=== PATIENT | male | born 1960 | race Caucasian/White ===

== ENCOUNTER 2019-01-24 10:22 | Emergency (ER) | payer SELFPAY ==
[~2019-01-24] VITALS: Ht 172.7 cm; Wt 100.0 kg
[2019-01-24 12:28] LABS: BASOPHILS % (AUTO) 0.4 % (0.0-2.0); EOSINOPHILS % (AUTO) 0.5 % (1.0-6.0); HEMATOCRIT 47.1 % (41-53); HEMOGLOBIN 16.1 g/dL (13.5-17.5); LYMPHOCYTES # (AUTO) 1.1 K/uL (1.0-4.8); LYMPHOCYTES % (AUTO) 9.5 % (22.0-44.0); MEAN CORPUSCULAR HEMOGLOBIN 31.2 pg (26.0-34.0); MEAN CORPUSCULAR HGB CONC 34.1 G/dL (31.0-37.0); MEAN CORPUSCULAR VOLUME 91 fL (80-100); MONOCYTES # (AUTO) 0.6 K/uL (0.1-1.0); MONOCYTES % (AUTO) 4.7 % (2.0-9.0); NEUTROPHILS # (AUTO) 10.1 K/uL (1.8-7.7); NEUTROPHILS % (AUTO) 84.9 % (40.0-70.0); PLATELET COUNT (AUTO) 235 K/uL (150-450); RED BLOOD CELL COUNT(AUTO) 5.16 MIL/uL (4.50-5.90); RED CELL DISTRIBUTION WIDTH 13.3 % (11.5-14.5)
[2019-01-24 12:37] VITALS: BP 119/75
[2019-01-24 12:43] LABS: ANION GAP 8 mmol/L (8-16); CARBON DIOXIDE 25 mmol/L (22-29); CHLORIDE 104 mmol/L (98-107); CREATININE 1.11 mg/dL (0.60-1.30); GLOMERULAR FILTR. RATE CALC > 60 mL/min (>60); GLUCOSE,RANDOM 113 mg/dL (70-110); POTASSIUM 4.6 mmol/L (3.5-5.1); SODIUM SERUM 137 mmol/L (136-145); UREA NITROGEN, BLOOD 15 mg/dL (7-18)
[2019-01-24 12:49] LABS: APPEARANCE,URINE CLEAR (CLEAR); BILIRUBIN,URINE NEGATIVE (NEGATIVE); GLUCOSE, URINE (UA) NEGATIVE (NEGATIVE); KETONES,URINE NEGATIVE (NEGATIVE); LEUKOCYTE ESTERASE ,URINE NEGATIVE (NEGATIVE); NITRATE,URINE NEGATIVE (NEGATIVE); OCCULT BLOOD,URINE SMALL (NEGATIVE); PROTEIN,URINE NEGATIVE (NEGATIVE); UROBILINOGEN,URINE 0.2 mg/dL (<=1.0)
[2019-01-24 12:50] LABS: ALANINE AMINOTRANSFERASE 30 U/L (12-78); ALBUMIN 3.6 g/dL (3.4-5.0); ALKALINE PHOSPHATASE 69 U/L (46-116); ASPARTATE AMINOTRANSFERASE 26 U/L (15-37); BILIRUBIN,TOTAL 0.2 mg/dL (0.1-1.0); TOTAL PROTEIN, SERUM 7.5 g/dL (6.4-8.2)
[2019-01-24 12:54] LABS: BACTERIA,URINE None Seen /HPF (None Seen); WBC,URINE None Seen /HPF (0-5)
== END 2019-01-24 14:11 | disposition home or self-care (01) ==
LOC: EMS 10:24
DX: N32.0 Bladder-neck obstruction (principal); R33.9 Retention of urine, unspecified
CPT/HCPCS: 51702

== ENCOUNTER 2019-03-12 13:05 | Emergency (ER) | payer MEDICAID ==
[~2019-03-12] VITALS: Ht 172.7 cm; Wt 109.1 kg
[2019-03-12 17:19] VITALS: BP 141/78
== END 2019-03-12 17:29 | disposition home or self-care (01) ==
LOC: EMS 13:06
DX: T83.098A Other mechanical complication of other urinary catheter, initial encounter (principal); R33.9 Retention of urine, unspecified; Y84.1 Kidney dialysis as the cause of abnormal reaction of the patient, or of later complication, without mention of misadventure at the time of the procedure
CPT/HCPCS: 51705

== ENCOUNTER 2019-03-13 20:34 | Emergency (ER) | payer MEDICAID ==
[~2019-03-13] VITALS: Ht 172.7 cm; Wt 104.5 kg
[2019-03-14 01:57] VITALS: BP 126/75
== END 2019-03-14 02:00 | disposition home or self-care (01) ==
LOC: EMS 20:34
DX: F10.129 Alcohol abuse with intoxication, unspecified (principal); R03.0 Elevated blood-pressure reading, without diagnosis of hypertension; N48.89 Other specified disorders of penis

== ENCOUNTER 2019-03-15 16:17 | Emergency (ER) | payer MEDICAID ==
[~2019-03-15] VITALS: Ht 172.7 cm; Wt 100.0 kg
[2019-03-15 20:08] LABS: APPEARANCE,URINE TURBID (CLEAR); BILIRUBIN,URINE NEGATIVE (NEGATIVE); GLUCOSE, URINE (UA) NEGATIVE (NEGATIVE); KETONES,URINE NEGATIVE (NEGATIVE); LEUKOCYTE ESTERASE ,URINE LARGE (NEGATIVE); NITRATE,URINE NEGATIVE (NEGATIVE); OCCULT BLOOD,URINE LARGE (NEGATIVE); PROTEIN,URINE SEE CONFIRM (NEGATIVE)
[2019-03-15 20:26] LABS: SULFOSALICYLIC ACID,URINE 4+ (Negative)
[2019-03-15 20:27] LABS: BACTERIA,URINE Many /HPF (None Seen); WBC,URINE Full Field /HPF (0-5)
[2019-03-15 20:31] LABS: SQUAMOUS EPITHELIAL CELL,UR None Seen /LPF (None Seen)
[2019-03-15 20:32] LABS: RBC,URINE 51-100 /HPF (0-2)
[2019-03-15] MEDS ORDERED: LIDOCAINE/PF 1% 2 ML VIAL IM ONE (20:45)
[2019-03-15] MEDS ORDERED: CefTRIAXone SODIUM 1 GM/VIAL IM ONE (20:45)
[2019-03-15] MEDS ORDERED: CIPROFLOXACIN HCL 250 MG TABLET PO ONE (20:45)
[2019-03-15 21:49] VITALS: BP 143/87
[2019-03-15] MEDS ORDERED: ACETAMINOPHEN 325 MG TABLET PO ONE (22:00)
== END 2019-03-15 22:24 | disposition home or self-care (01) ==
LOC: EMS 16:19
DX: N39.0 Urinary tract infection, site not specified (principal)
CPT/HCPCS: 81001; 87077; 87086; 87186; 96372; 99283; J0696; J3490

== ENCOUNTER 2024-02-03 09:12 | Emergency (ER) | payer MEDICAID, OTHER ==
[~2024-02-03] VITALS: Ht 172.7 cm; Wt 115.9 kg
[2024-02-03 09:21] VITALS: TEMP 98.3
[2024-02-03 09:32] LABS: COVID AG,FIA SOURCE NASAL SWAB
[2024-02-03 09:52] LABS: SARS-COV2 (COVID) ANTIGEN,FIA Negative (Negative)
[2024-02-03 09:53] LABS: INFLUENZA TYPE A NEGATIVE FOR TYPE A (NEGATIVE); INFLUENZA TYPE B NEGATIVE FOR TYPE B (NEGATIVE)
[2024-02-03 10:13] LABS: BASOPHILS % (AUTO) 0.6 % (0.0-2.0); EOSINOPHILS % (AUTO) 2.1 % (1.0-6.0); HEMATOCRIT 46.8 % (41-53); HEMOGLOBIN 15.9 g/dL (13.5-17.5); LYMPHOCYTES # (AUTO) 1.2 K/uL (1.0-4.8); MEAN CORPUSCULAR HEMOGLOBIN 30.4 pg (26.0-34.0); MEAN CORPUSCULAR VOLUME 90 fL (80-100); MONOCYTES # (AUTO) 0.7 K/uL (0.1-1.0); MONOCYTES % (AUTO) 12.9 % (2.0-9.0); NEUTROPHILS # (AUTO) 3.1 K/uL (1.8-7.7); NEUTROPHILS % (AUTO) 60.4 % (40.0-70.0); PLATELET COUNT (AUTO) 163 K/uL (150-450); RED BLOOD CELL COUNT(AUTO) 5.23 MIL/uL (4.50-5.90); RED CELL DISTRIBUTION WIDTH 13.8 % (11.5-14.5); WHITE BLOOD COUNT (AUTO) 5.2 K/uL (4.5-11.0)
[2024-02-03 10:21] LABS: ANION GAP 5 mmol/L (8-16); CALCIUM, TOTAL 8.7 mg/dL (8.8-10.5); CARBON DIOXIDE 28 mmol/L (22-29); CHLORIDE 100 mmol/L (98-107); CREATININE 0.97 mg/dL (0.60-1.30); GLOMERULAR FILTR. RATE CALC > 60 mL/min (>60); GLUCOSE,RANDOM 107 mg/dL (70-110); POTASSIUM 3.9 mmol/L (3.5-5.1); SODIUM SERUM 133 mmol/L (136-145); UREA NITROGEN, BLOOD 13 mg/dL (7-18)
[2024-02-03 10:30] LABS: TROPONIN I-HIGH SENSITIVITY 6 ng/L (<76)
[2024-02-03 10:32] LABS: B-TYPE NATRIURETIC PEPTIDE < 5 pg/mL (0-100)
[2024-02-03] MEDS: ALBUTEROL SULFATE 2.5 MG/0.5 ML NEB SOLUTION NEB ONE (10:36)
[2024-02-03] MEDS: IPRATROPIUM BROMIDE 0.5 MG/2.5 ML NEB SOLUTION NEB ONE (10:36)
[2024-02-03 10:37] VITALS: PULSE 86; RESP 18; O2SAT 98
[2024-02-03 10:38] VITALS: PULSE 86; RESP 18; O2SAT 98
[2024-02-03] MEDS: PredniSONE 20 MG TABLET PO ONE (11:02)
[2024-02-03] MEDS: ALBUTEROL SULFATE HFA 90 MCG/PUFF 8 GM INHALER IH ONE (11:29)
[2024-02-03] MEDS ORDERED: AZIT250T9 PO (11:56)
[2024-02-03] MEDS ORDERED: PRED-554 PO (11:57)
[2024-02-03 12:00] VITALS: BP 136/81; PULSE 87; RESP 20; O2SAT 95
== END 2024-02-03 12:55 | disposition home or self-care (01) ==
LOC: EMS 09:31
DX: J98.01 Acute bronchospasm (principal); J98.4 Other disorders of lung; R06.02 Shortness of breath; R05.9 Cough, unspecified; Z20.822 Contact with and (suspected) exposure to COVID-19
CPT/HCPCS: 99285; 71045; 87426; 80048; 83880; 84484; 85025; 87804; 36415; 94640; 93005; J7512; J3535; J7613

== ENCOUNTER 2024-11-19 23:40 | Emergency (ER) | payer OTHER ==
[~2024-11-19] VITALS: Ht 172.7 cm; Wt 118.2 kg
[~2024-11-19 23:40] MED LIST: SULF-261 PO; TAMS0.4C94 PO
[2024-11-19 23:47] VITALS: BP 140/52; PULSE 80; RESP 16; TEMP 98.7; O2SAT 100
[2024-11-20 02:01] LABS: PLATELET COUNT (AUTO) 205 K/uL (150-450); RED BLOOD CELL COUNT(AUTO) 5.12 MIL/uL (4.50-5.90); RED CELL DISTRIBUTION WIDTH 14.0 % (11.5-14.5); WHITE BLOOD COUNT (AUTO) 6.0 K/uL (4.5-11.0)
[2024-11-20 02:15] LABS: CALCIUM, TOTAL 8.5 mg/dL (8.8-10.5); CREATININE 0.89 mg/dL (0.60-1.30); GLOMERULAR FILTR. RATE CALC > 60 mL/min (>60); GLUCOSE,RANDOM 113 mg/dL (70-110); SODIUM SERUM 137 mmol/L (136-145); UREA NITROGEN, BLOOD 13 mg/dL (7-18)
[2024-11-20 02:25] LABS: LACTIC ACID 1.1 mmol/L (0.4-2.0)
[2024-11-20] MEDS ORDERED: CEPH-558 PO (03:44)
[2024-11-20] MEDS ORDERED: BACTDSB PO (03:44)
[2024-11-20] MEDS: SULFAMETHOX/TRIMETH DS 800-160 MG/TABLET PO ONE (03:54)
[2024-11-20] MEDS: CEPHALEXIN MONOHYDRATE 500 MG CAPSULE PO ONE (03:55)
== END 2024-11-20 04:30 | disposition home or self-care (01) ==
LOC: EMS 23:40
DX: L03.115 Cellulitis of right lower limb (principal)
CPT/HCPCS: 80048; 83605; 85025; 99283; 99285

== ENCOUNTER 2025-01-14 20:09 | Inpatient (IN) | payer OTHER ==
[~2025-01-14] VITALS: Ht 172.7 cm; Wt 125.5 kg
[~2025-01-14 20:09] MED LIST changes: +BACTDSB PO; +CEPH-558 PO; -SULF-261 PO; +SULF1TAB94 PO
[2025-01-14] MEDS: SODIUM CHLORIDE 0.9% 1,000 ML IV ONE (23:24)
[2025-01-14 23:32] LABS: PLATELET COUNT (AUTO) 208 K/uL (150-450); RED BLOOD CELL COUNT(AUTO) 4.91 MIL/uL (4.50-5.90); RED CELL DISTRIBUTION WIDTH 13.8 % (11.5-14.5); WHITE BLOOD COUNT (AUTO) 7.3 K/uL (4.5-11.0)
[2025-01-14 23:37] LABS: CALCIUM, TOTAL 9.1 mg/dL (8.8-10.5); CREATININE 1.03 mg/dL (0.60-1.30); GLOMERULAR FILTR. RATE CALC > 60 mL/min (>60); GLUCOSE,RANDOM 99 mg/dL (70-110); SODIUM SERUM 140 mmol/L (136-145); UREA NITROGEN, BLOOD 20 mg/dL (7-18)
[2025-01-14] MEDS: VANCOMYCIN 1GM/WATER(PEG/NADA) 200 ML IV ONE (23:50)
[2025-01-14 23:52] LABS: LACTIC ACID 1.3 mmol/L (0.4-2.0)
[2025-01-15 01:41] VITALS: BP 139/66; PULSE 88; RESP 18; TEMP 98.3; O2SAT 98
[2025-01-15 08:39] VITALS: BP 132/69; PULSE 81; RESP 18; TEMP 98.2; O2SAT 99
[2025-01-15 16:46] VITALS: BP 147/75; PULSE 81; RESP 18; TEMP 98.2; O2SAT 96
[2025-01-15 19:56] VITALS: BP 152/85; PULSE 87; RESP 18; TEMP 98.6; O2SAT 98
[2025-01-15] MEDS ORDERED: HYDROCODONE/ACETAMINOPHEN 5-325 MG TABLET PO PRN (22:45)
[2025-01-15] MEDS ORDERED: ZOLPIDEM TARTRATE 5 MG TABLET PO PRN (22:45)
[2025-01-15] MEDS ORDERED: MORPHINE SULFATE 4 MG/ML SYRINGE IVP PRN (22:45)
[2025-01-15] MEDS ORDERED: ACETAMINOPHEN 325 MG TABLET PO PRN (22:45)
[2025-01-15] MEDS ORDERED: ONDANSETRON HCL 4 MG/2 ML VIAL IVP PRN (22:45)
[2025-01-15] MEDS ORDERED: ALBUTEROL SULFATE 2.5 MG/0.5 ML NEB SOLUTION NEB PRN (22:45)
[2025-01-15] MEDS ORDERED: MAGNESIUM HYDROXIDE SUSPENSION 30 ML UDCUP PO PRN (22:45)
[2025-01-15] MEDS ORDERED: IPRATROPIUM BROMIDE 0.5 MG/2.5 ML NEB SOLUTION NEB PRN (22:45)
[2025-01-15] MEDS ORDERED: BISACODYL 10 MG RECTAL RECTAL SUPPOSITORY PR PRN (22:45)
[2025-01-15] MEDS: HEPARIN SODIUM,PORCINE 5,000 UNITS/ML VIAL SQ SCH (23:37)
[2025-01-15] MEDS: VANCOMYCIN 1.25 GM/WATER(PEG) 250 ML IV ONE (23:55)
[2025-01-16 05:03] VITALS: BP 118/66; PULSE 78; RESP 18; TEMP 97.6; O2SAT 98
[2025-01-16 07:52] LABS: CALCIUM, TOTAL 9.1 mg/dL (8.8-10.5); CREATININE 0.85 mg/dL (0.60-1.30); GLOMERULAR FILTR. RATE CALC > 60 mL/min (>60); GLUCOSE,RANDOM 107 mg/dL (70-110); SODIUM SERUM 138 mmol/L (136-145); UREA NITROGEN, BLOOD 14 mg/dL (7-18)
[2025-01-16] MEDS ORDERED: SODIUM CHLORIDE 0.9% 500 ML IV ONE (08:16)
[2025-01-16] MEDS: VANCOMYCIN 1.25 GM/WATER(PEG) 250 ML IV SCH (08:19)
[2025-01-16] MEDS: PANTOPRAZOLE SODIUM 40 MG DR TABLET PO SCH (08:20)
[2025-01-16 08:40] VITALS: BP 135/71; PULSE 83; RESP 20; TEMP 97.9; O2SAT 97
[2025-01-16] MEDS ORDERED: DOXY-354 PO (14:56)
[2025-01-16 16:00] VITALS: BP 147/87; PULSE 85; RESP 20; TEMP 98.1; O2SAT 96
[2025-01-16] MEDS ORDERED: TAMSULOSIN HCL 0.4 MG CAPSULE PO SCH (21:00)
== END 2025-01-16 17:57 | disposition home or self-care (01) | DRG 383 ==
LOC: EMS 20:09 → EDH 23:33 → 4E 01-15 01:30 → 6N 01-16 08:25 → 6S 01-16 09:12
PROVIDERS: ADMIT Hospitalist; ATTEND Hospitalist
DX: L03.115 Cellulitis of right lower limb (principal); L97.919 Non-pressure chronic ulcer of unspecified part of right lower leg with unspecified severity; I10 Essential (primary) hypertension; I87.2 Venous insufficiency (chronic) (peripheral); N40.0 Benign prostatic hyperplasia without lower urinary tract symptoms; L53.9 Erythematous condition, unspecified; Z79.899 Other long term (current) drug therapy
CPT/HCPCS: 80048; 83605; 85025; 87040; 96365; 99285; G0378; J1644; J7030; J7040